=== PATIENT | female | born 1930 | race Caucasian/White ===

== ENCOUNTER 2016-12-07 19:07 | Emergency (ER) | payer MEDICARE, BC ==
[~2016-12-07] VITALS: Ht 154.9 cm; Wt 71.4 kg
[~2016-12-07 19:07] MED LIST: 00186-0370-20 IH; ACTONEL; ACTONEL PO; ATORVASTATIN PO; BACTRIM DS 8001 TAB PO; CEPHALEXIN500 M1 PO; DARVOCET-N-101 UDTAB PO; DIOVAN; DIOVAN80 M1 PO; GLUCOPHAGE500 MG/TAB PO; HCTZ; HCTZ 25MG25 MG PO; IMODIUM 2MG CAPS2 MG PO; INDOMETHACIN50 MG PO; IRON FERROUS S325 MG PO; LABETALOL HCL100 MG PO; LASIX10 MG/M1 PO; LIDODERM PATCH TP; LIPITOR 10MG10 MG PO; LUTEIN8MG PO; NEXIUM PO; NEXIUM40 MG PO; OMNICEF 300MG300 MG PO; PRIL40 PO; PRINIVIL10 MG PO; TRANDATE 200MG200 MG PO; TUMS500 MG PO; TYLENOL 325MG325 MG PO; VITAMIN D31000 IU PO; ZANTAC 150MG T150 MG PO
[2016-12-07 19:09] VITALS: TEMP 98.3
[2016-12-07] MEDS ORDERED: LIPITOR 10MG10 MG (19:31)
[2016-12-07 19:57] LABS: PH 6 (5-8); SQUAMOUS EPITHELIAL 20-50 /hpf; URINE APPEARANCE Cloudy; URINE BACTERIA Moderate /hpf; URINE BILIRUBIN Negative (NEGATIVE); URINE BLOOD Negative (NEGATIVE); URINE COLOR Yellow; URINE GLUCOSE Negative (NEGATIVE); URINE KETONE Negative (NEGATIVE); URINE RBC 0-2 /hpf
[2016-12-07] MEDS ORDERED: CEPHALEXIN500 M1 PO (20:14)
[2016-12-07] MEDS ORDERED: NORCO 325 MG-51 TAB PO (20:14)
[2016-12-07 20:41] VITALS: BP 150/81; PULSE 64
== END 2016-12-07 20:42 | disposition home or self-care (01) ==
LOC: COL.ER 19:07
PROVIDERS: Emergency Medicine
DX: M54.5 Low back pain (principal); R22.2 Localized swelling, mass and lump, trunk

== ENCOUNTER → 2016-12-15 | Outpatient (CLI) | payer MEDICARE, BC ==
[~2016-12-15] MED LIST changes: +LIPITOR 10MG10 MG; +NORCO 325 MG-51 TAB PO
== END ==
LOC: COL.RAD 10:17
DX: M48.06 Spinal stenosis, lumbar region (principal)
CPT/HCPCS: A9585

== ENCOUNTER → 2017-01-19 | Outpatient (CLI) | payer MEDICARE, BC | LOC: COL.RAD 10:46 | DX: M25.552 Pain in left hip (principal) | CPT/HCPCS: J3301; Q9967 ==

== ENCOUNTER → 2017-05-01 | Outpatient (CLI) | payer MEDICARE, BC | LOC: MHCPAIN 11:12 | DX: G89.29 Other chronic pain (principal); M47.817 Spondylosis without myelopathy or radiculopathy, lumbosacral region; M54.16 Radiculopathy, lumbar region; M53.3 Sacrococcygeal disorders, not elsewhere classified; M96.1 Postlaminectomy syndrome, not elsewhere classified | CPT/HCPCS: G0463 ==

== ENCOUNTER → 2017-05-07 | Outpatient (CLI) | payer MEDICARE, BC | LOC: MHCPAIN 10:44 | DX: M54.16 Radiculopathy, lumbar region (principal); M96.1 Postlaminectomy syndrome, not elsewhere classified | CPT/HCPCS: J1100; Q9967 ==

== ENCOUNTER → 2017-06-12 | Outpatient (CLI) | payer MEDICARE, BC ==
[~2017-06-12] MED LIST changes: +AMITRIPTYLINE H25 M1 PO; +ASPIRIN 32325 MG/TAB PO; +DITROPAN 5MG TAB5 MG PO; +DOXYCYCLINE 10100 MG PO; +FLOVENT 110MCG7.9 GM IH; +Florastor PO; +LIPITOR 40MG TA40 MG PO; +NORVASC 10MG10 MG PO; +PRINIVIL20 MG PO; +PROAIR HFA0.09 MG/AC IH; +PROBIOTIC ACID1 EAC3 PO; +PROLIA60 MG/ML SQ; +ULTRAM 50MG TAB50 MG PO; +ZOFRAN 4MG T4 MG/TAB PO
== END ==
LOC: MHCPAIN 10:57
DX: G89.29 Other chronic pain (principal); M47.27 Other spondylosis with radiculopathy, lumbosacral region; M53.3 Sacrococcygeal disorders, not elsewhere classified; M96.1 Postlaminectomy syndrome, not elsewhere classified
CPT/HCPCS: G0463

== ENCOUNTER → 2017-06-18 | Outpatient (CLI) | payer MEDICARE, BC ==
[~2017-06-18] MED LIST changes: -AMITRIPTYLINE H25 M1 PO; -ASPIRIN 32325 MG/TAB PO; -DITROPAN 5MG TAB5 MG PO; -DOXYCYCLINE 10100 MG PO; -FLOVENT 110MCG7.9 GM IH; -Florastor PO; -LIPITOR 40MG TA40 MG PO; -NORVASC 10MG10 MG PO; -PRINIVIL20 MG PO; -PROAIR HFA0.09 MG/AC IH; -PROBIOTIC ACID1 EAC3 PO; -PROLIA60 MG/ML SQ; -ULTRAM 50MG TAB50 MG PO; -ZOFRAN 4MG T4 MG/TAB PO
== END ==
LOC: MHCPAIN 09:37
DX: M47.817 Spondylosis without myelopathy or radiculopathy, lumbosacral region (principal); Z98.1 Arthrodesis status
CPT/HCPCS: J1040; Q9967

== ENCOUNTER → 2017-06-24 | Outpatient (CLI) | payer MEDICARE, BC | LOC: MHCPAIN 09:26 | DX: G89.29 Other chronic pain (principal); M47.27 Other spondylosis with radiculopathy, lumbosacral region; M53.3 Sacrococcygeal disorders, not elsewhere classified; M96.1 Postlaminectomy syndrome, not elsewhere classified | CPT/HCPCS: G0463 ==

== ENCOUNTER 2017-08-10 13:15 | Outpatient (RCR) | payer MEDICARE, BC | END 2017-10-08 | disposition still patient (30) | LOC: MKS.ESL.PT | DX: R26.89 Other abnormalities of gait and mobility (principal); R29.6 Repeated falls; Z96.89 Presence of other specified functional implants | CPT/HCPCS: G8981-GP; G8982-GP ==

== ENCOUNTER → 2017-09-07 | Outpatient (CLI) | payer MEDICARE, BC | LOC: MHCPAIN 12:29 | DX: G89.29 Other chronic pain (principal); M47.817 Spondylosis without myelopathy or radiculopathy, lumbosacral region; M53.3 Sacrococcygeal disorders, not elsewhere classified; M96.1 Postlaminectomy syndrome, not elsewhere classified | CPT/HCPCS: G0463 ==

== ENCOUNTER → 2017-09-24 | Outpatient (CLI) | payer MEDICARE, BC | LOC: MHCPAIN 08:42 | DX: M47.27 Other spondylosis with radiculopathy, lumbosacral region (principal); M96.1 Postlaminectomy syndrome, not elsewhere classified; M99.53 Intervertebral disc stenosis of neural canal of lumbar region | CPT/HCPCS: J1100; J2250; J3010; Q9967 ==

== ENCOUNTER → 2017-11-20 | Outpatient (CLI) | payer MEDICARE, BC | LOC: MHCPAIN 08:06 | DX: G89.29 Other chronic pain (principal); M47.27 Other spondylosis with radiculopathy, lumbosacral region; M53.3 Sacrococcygeal disorders, not elsewhere classified; M96.1 Postlaminectomy syndrome, not elsewhere classified | CPT/HCPCS: G0463 ==

== ENCOUNTER → 2017-11-20 | Outpatient (CLI) | payer MEDICARE, BC | LOC: COL.RAD 08:56 | DX: M54.9 Dorsalgia, unspecified (principal); Z98.1 Arthrodesis status; M43.16 Spondylolisthesis, lumbar region ==

== ENCOUNTER → 2017-12-10 | Outpatient (CLI) | payer MEDICARE, BC | LOC: MHCPAIN 10:41 | DX: M47.817 Spondylosis without myelopathy or radiculopathy, lumbosacral region (principal); M96.1 Postlaminectomy syndrome, not elsewhere classified; M53.3 Sacrococcygeal disorders, not elsewhere classified | CPT/HCPCS: G0260; J1040; Q9967 ==

== ENCOUNTER 2018-01-06 18:38 | Inpatient (IN) | payer MEDICARE, BC ==
[~2018-01-06] VITALS: Ht 154.9 cm; Wt 68.6 kg
[2018-01-06] MEDS ORDERED: AMITRIPTYLINE H25 M1 PO (19:16)
[2018-01-06 19:17] LABS: BASO % 0.2 % (0.0-2.0); EOS % 0.2 % (0-4.0); GRAN # 10.7 (1.4-6.5); GRAN % 82.2 % (42.2-75.2); HEMATOCRIT 41.2 % (37.0-47.0); HEMOGLOBIN 14.1 g/dl (12.5-16.0); LYMPH % 7.9 % (20.0-51.0); MEAN CELL VOLUME 91 fl (80.0-100.0); MEAN CORPUSCULAR HEMOGLOBIN 31 pg (27.0-31.0); MEAN CORPUSCULAR HGB CONC 34 g/dl (33.0-37.0); MONO # 1.2 (0.1-0.6); PLATELET COUNT 198 K/mm3 (130-400); RED BLOOD COUNT 4.53 M/mm3 (4.10-5.30); REDCELL DISTRIBUTION WIDTH-CV 12.9 % (11.5-14.5)
[2018-01-06] MEDS ORDERED: FLOVENT 110MCG7.9 GM IH (19:18)
[2018-01-06] MEDS ORDERED: PRINIVIL10 MG PO (19:19)
[2018-01-06] MEDS ORDERED: PRIL40 PO (19:20)
[2018-01-06 19:21] LABS: INR 1.1 (0.8-3.0); PROTHROMBIN TIME 12.5 SECONDS (9.7-12.8)
[2018-01-06] MEDS ORDERED: ZOFRAN 4MG T4 MG/TAB PO (19:21)
[2018-01-06] MEDS ORDERED: DITROPAN 5MG TAB5 MG PO (19:22)
[2018-01-06] MEDS ORDERED: PROAIR HFA0.09 MG/AC IH (19:24)
[2018-01-06 19:30] LABS: ALANINE AMINOTRANSFERASE 25 U/L (9-52); ALBUMIN 4.2 gm/dL (3.5-5.0); ALKALINE PHOSPHATASE 79 U/L (50-136); ANION GAP 17 mmol/L (7-16); AST,SGOT 22 U/L (15-37); BILIRUBIN,TOTAL 0.9 mg/dL (0.0-1.0); BLOOD UREA NITROGEN 13 mg/dL (7-17); CALCIUM 9.6 mg/dL (8.4-10.2); CARBON DIOXIDE 21 mmol/L (22-30); CHLORIDE 103 mmol/L (98-107); GLUCOSE 133 mg/dL (74-106); POTASSIUM 3.3 mmol/L (3.4-5.0); SODIUM 142 mmol/L (137-145); TOTAL PROTEIN 7.6 gm/dL (6.4-8.2)
[2018-01-06 19:43] LABS: COLLECTION METHOD CLEAN CATCH
[2018-01-06 19:44] LABS: TROPONIN-I < 0.012 ng/mL (0.000-0.034)
[2018-01-06 19:59] LABS: MUCOUS Present /lpf; PH 5 (5-8); SQUAMOUS EPITHELIAL 0-2 /hpf; URINE APPEARANCE Hazy; URINE BACTERIA None Seen /hpf; URINE BILIRUBIN Negative (NEGATIVE); URINE BLOOD 2+ (NEGATIVE); URINE COLOR Yellow; URINE GLUCOSE Negative (NEGATIVE); URINE KETONE Trace (NEGATIVE); URINE LEUKOCYTE ESTERASE Negative (NEGATIVE); URINE NITRATE Positive (NEGATIVE); URINE PROTEIN(semi-quant) Negative (NEGATIVE); URINE UROBILINOGEN Negative (NEGATIVE)
[2018-01-06 21:14] VITALS: BP 155/86; PULSE 114; TEMP 98.8
[2018-01-06] MEDS ORDERED: PROLIA60 MG/ML SQ (21:34)
[2018-01-06] MEDS ORDERED: ULTRAM 50MG TAB50 MG PO (21:37)
[2018-01-07] VITALS (8 sets, daily range): BP systolic 108–167; BP diastolic 53–106; PULSE 77–108; TEMP 97.5–99.5
[2018-01-07 07:00] LABS: BASO # 0.1 (0.0-0.2); BASO % 0.3 % (0.0-2.0); EOS # 0.1 (0.0-0.7); EOS % 0.4 % (0-4.0); GRAN # 13.2 (1.4-6.5); GRAN % 75.7 % (42.2-75.2); HEMOGLOBIN 12.2 g/dl (12.5-16.0); LYMPH # 2.6 (1.2-3.4); LYMPH % 14.8 % (20.0-51.0); MEAN CELL VOLUME 92 fl (80.0-100.0); MEAN CORPUSCULAR HEMOGLOBIN 31 pg (27.0-31.0); MEAN CORPUSCULAR HGB CONC 34 g/dl (33.0-37.0); MEAN PLATELET VOLUME 9.5 fl (7.4-10.4); MONO # 1.4 (0.1-0.6); MONO % 8.2 % (1.7-9.3); PLATELET COUNT 194 K/mm3 (130-400); RED BLOOD COUNT 3.97 M/mm3 (4.10-5.30); REDCELL DISTRIBUTION WIDTH-CV 13.1 % (11.5-14.5)
[2018-01-07 07:01] LABS: HEMATOCRIT 36.4 % (37.0-47.0)
[2018-01-07 07:08] LABS: ALBUMIN 3.2 gm/dL (3.5-5.0); BILIRUBIN,TOTAL 0.7 mg/dL (0.0-1.0); CALCIUM 8.4 mg/dL (8.4-10.2); CREATININE, serum 0.98 mg/dL (0.52-1.25); POTASSIUM 3.9 mmol/L (3.4-5.0)
[2018-01-08 04:11] VITALS: BP 163/65; PULSE 86; TEMP 98.3
[2018-01-08 07:41] LABS: BASO % 0.3 % (0.0-2.0); EOS # 0.2 (0.0-0.7); EOS % 1.2 % (0-4.0); GRAN % 73.9 % (42.2-75.2); LYMPH # 2.2 (1.2-3.4); LYMPH % 16.1 % (20.0-51.0); MEAN CELL VOLUME 92 fl (80.0-100.0); MEAN CORPUSCULAR HGB CONC 33 g/dl (33.0-37.0); MEAN PLATELET VOLUME 9.6 fl (7.4-10.4); MONO # 1.1 (0.1-0.6); MONO % 7.8 % (1.7-9.3); PLATELET COUNT 186 K/mm3 (130-400); RED BLOOD COUNT 3.78 M/mm3 (4.10-5.30); REDCELL DISTRIBUTION WIDTH-CV 13.2 % (11.5-14.5)
[2018-01-08 07:45] LABS: CALCIUM 8.2 mg/dL (8.4-10.2); CREATININE, serum 0.88 mg/dL (0.52-1.25); POTASSIUM 3.3 mmol/L (3.4-5.0)
[2018-01-08 07:47] LABS: HEMATOCRIT 34.7 % (37.0-47.0); HEMOGLOBIN 11.6 g/dl (12.5-16.0); MEAN CORPUSCULAR HEMOGLOBIN 31 pg (27.0-31.0)
[2018-01-08 08:18] VITALS: BP 152/62; PULSE 90; TEMP 98.8
[2018-01-08 11:02] VITALS: BP 133/48; PULSE 72; TEMP 98.1
[2018-01-08 15:42] VITALS: BP 144/64; PULSE 81; TEMP 97.7
[2018-01-08 19:32] VITALS: BP 135/75; PULSE 84; TEMP 98.2
[2018-01-09] VITALS (7 sets, daily range): BP systolic 142–171; BP diastolic 58–106; PULSE 70–82; TEMP 97.3–99.4
[2018-01-09 07:15] LABS: BASO % 0.2 % (0.0-2.0); EOS # 0.3 (0.0-0.7); LYMPH # 2.7 (1.2-3.4); LYMPH % 24.3 % (20.0-51.0); MEAN CELL VOLUME 93 fl (80.0-100.0); MEAN CORPUSCULAR HGB CONC 33 g/dl (33.0-37.0); MEAN PLATELET VOLUME 9.6 fl (7.4-10.4); MONO # 0.9 (0.1-0.6); PLATELET COUNT 211 K/mm3 (130-400); RED BLOOD COUNT 3.65 M/mm3 (4.10-5.30); REDCELL DISTRIBUTION WIDTH-CV 13.2 % (11.5-14.5)
[2018-01-09 07:16] LABS: HEMATOCRIT 34.1 % (37.0-47.0); HEMOGLOBIN 11.4 g/dl (12.5-16.0); MEAN CORPUSCULAR HEMOGLOBIN 31 pg (27.0-31.0)
[2018-01-09 07:55] LABS: CALCIUM 8.3 mg/dL (8.4-10.2); CREATININE, serum 0.94 mg/dL (0.52-1.25); POTASSIUM 3.9 mmol/L (3.4-5.0)
[2018-01-10 03:34] VITALS: BP 156/60; PULSE 75; TEMP 98.1
[2018-01-10 06:42] LABS: BASO % 0.3 % (0.0-2.0); EOS # 0.3 (0.0-0.7); EOS % 3.9 % (0-4.0); GRAN % 56.3 % (42.2-75.2); LYMPH # 2.7 (1.2-3.4); LYMPH % 30.2 % (20.0-51.0); MEAN CELL VOLUME 94 fl (80.0-100.0); MEAN CORPUSCULAR HGB CONC 33 g/dl (33.0-37.0); MEAN PLATELET VOLUME 9.6 fl (7.4-10.4); MONO # 0.8 (0.1-0.6); MONO % 8.7 % (1.7-9.3); PLATELET COUNT 226 K/mm3 (130-400); RED BLOOD COUNT 3.63 M/mm3 (4.10-5.30)
[2018-01-10 07:00] LABS: CREATININE, serum 0.93 mg/dL (0.52-1.25); HEMATOCRIT 34.1 % (37.0-47.0); HEMOGLOBIN 11.2 g/dl (12.5-16.0); MAGNESIUM 1.6 mg/dL (1.6-2.3); MEAN CORPUSCULAR HEMOGLOBIN 31 pg (27.0-31.0); PHOSPHOROUS 3.8 mg/dL (2.5-4.5); POTASSIUM 3.4 mmol/L (3.4-5.0)
[2018-01-10 07:47] VITALS: BP 168/73; PULSE 67; TEMP 98.1
[2018-01-10] MEDS ORDERED: PRINIVIL20 MG PO (09:18)
[2018-01-10] MEDS ORDERED: Florastor PO (09:19)
[2018-01-10] MEDS ORDERED: PROBIOTIC ACID1 EAC3 PO (09:19)
[2018-01-10] MEDS ORDERED: OMNICEF 300MG300 MG PO (09:20)
[2018-01-10 09:23] VITALS: BP 156/68; PULSE 97
[2018-01-10 12:31] VITALS: BP 150/64; PULSE 70; TEMP 97.2
== END 2018-01-10 15:21 | disposition home health service (06) | DRG 871 ==
LOC: COL.ER 18:38 → MEDICAL 20:11
PROVIDERS: Emergency Medicine; Internal Medicine; Nurse Practitioner; Physician Assistant
DX: A41.9 Sepsis, unspecified organism (principal); J18.9 Pneumonia, unspecified organism; R65.21 Severe sepsis with septic shock; E86.0 Dehydration; E87.6 Hypokalemia; I10 Essential (primary) hypertension; G89.29 Other chronic pain; M54.5 Low back pain; E83.42 Hypomagnesemia
CPT/HCPCS: 99223-AI; 99231-AI; 99232-AI; 99238; J0696; J1650; J2543; J3475; J7030; Q9967

== ENCOUNTER → 2018-01-18 | Outpatient (CLI) | payer MEDICARE, BC ==
[~2018-01-18] MED LIST changes: +AMITRIPTYLINE H25 M1 PO; +DITROPAN 5MG TAB5 MG PO; +FLOVENT 110MCG7.9 GM IH; +Florastor PO; +PRINIVIL20 MG PO; +PROAIR HFA0.09 MG/AC IH; +PROBIOTIC ACID1 EAC3 PO; +PROLIA60 MG/ML SQ; +ULTRAM 50MG TAB50 MG PO; +ZOFRAN 4MG T4 MG/TAB PO
== END ==
LOC: MHCPAIN 11:33
DX: G89.29 Other chronic pain (principal); M47.27 Other spondylosis with radiculopathy, lumbosacral region; M47.814 Spondylosis without myelopathy or radiculopathy, thoracic region; M53.3 Sacrococcygeal disorders, not elsewhere classified; M96.1 Postlaminectomy syndrome, not elsewhere classified
CPT/HCPCS: G0463

== ENCOUNTER → 2018-04-05 | Outpatient (CLI) | payer MEDICARE, BC | LOC: MHCPAIN 11:09 | DX: G89.29 Other chronic pain (principal); M47.817 Spondylosis without myelopathy or radiculopathy, lumbosacral region; M54.16 Radiculopathy, lumbar region; M53.3 Sacrococcygeal disorders, not elsewhere classified; M96.1 Postlaminectomy syndrome, not elsewhere classified | CPT/HCPCS: G0463 ==

== ENCOUNTER → 2018-04-22 | Outpatient (CLI) | payer MEDICARE, BC | LOC: MHCPAIN 13:07 | DX: M47.817 Spondylosis without myelopathy or radiculopathy, lumbosacral region (principal); M53.3 Sacrococcygeal disorders, not elsewhere classified | CPT/HCPCS: G0260; J1040; Q9967 ==

== ENCOUNTER → 2018-06-01 | Outpatient (CLI) | payer MEDICARE, BC | LOC: MHCPAIN 11:43 | DX: M47.817 Spondylosis without myelopathy or radiculopathy, lumbosacral region (principal); M54.16 Radiculopathy, lumbar region; M53.3 Sacrococcygeal disorders, not elsewhere classified; M96.1 Postlaminectomy syndrome, not elsewhere classified | CPT/HCPCS: G0463 ==

== ENCOUNTER → 2018-07-04 | Emergency (ER) | payer MEDICARE, BC ==
[~2018-07-04] VITALS: Ht 154.9 cm; Wt 65.5 kg
[~2018-07-04] MED LIST changes: +DOXYCYCLINE 10100 MG PO
[2018-07-04 17:14] VITALS: BP 140/68; PULSE 78; TEMP 97.6
== END ==
LOC: COL.ER 17:07
DX: L02.31 Cutaneous abscess of buttock (principal); Z23 Encounter for immunization; Z79.891 Long term (current) use of opiate analgesic; Z79.899 Other long term (current) drug therapy

== ENCOUNTER 2018-07-06 18:53 | Emergency (ER) | payer MEDICARE, BC ==
[2018-07-06 18:55] VITALS: BP 184/89; TEMP 98.1
[2018-07-06 19:20] VITALS: PULSE 65
== END 2018-07-06 19:22 | disposition home or self-care (01) ==
LOC: COL.ER 18:53
DX: L02.31 Cutaneous abscess of buttock (principal); I10 Essential (primary) hypertension; E78.5 Hyperlipidemia, unspecified; K21.9 Gastro-esophageal reflux disease without esophagitis; Z90.89 Acquired absence of other organs

== ENCOUNTER → 2018-08-24 | Outpatient (CLI) | payer MEDICARE, BC | LOC: MHCPAIN 13:45 | DX: G89.29 Other chronic pain (principal); M47.817 Spondylosis without myelopathy or radiculopathy, lumbosacral region; M54.16 Radiculopathy, lumbar region; M53.3 Sacrococcygeal disorders, not elsewhere classified; M96.1 Postlaminectomy syndrome, not elsewhere classified | CPT/HCPCS: G0463 ==

== ENCOUNTER → 2018-09-06 | Outpatient (CLI) | payer MEDICARE, BC | LOC: MHCPAIN 11:18 | DX: M47.817 Spondylosis without myelopathy or radiculopathy, lumbosacral region (principal); M54.16 Radiculopathy, lumbar region | CPT/HCPCS: J1100; Q9967 ==

== ENCOUNTER → 2018-09-21 | Outpatient (CLI) | payer MEDICARE, BC | LOC: MHCPAIN 13:50 | DX: G89.29 Other chronic pain (principal); M47.817 Spondylosis without myelopathy or radiculopathy, lumbosacral region; M54.16 Radiculopathy, lumbar region; M53.3 Sacrococcygeal disorders, not elsewhere classified; M96.1 Postlaminectomy syndrome, not elsewhere classified | CPT/HCPCS: G0463 ==

== ENCOUNTER 2019-11-03 08:08 | Inpatient (IN) | payer MEDICARE, BC ==
[~2019-11-03] VITALS: Ht 154.9 cm; Wt 79.3 kg
[~2019-11-03 08:08] MED LIST changes: +ASPIRIN 32325 MG/TAB PO; +LIPITOR 40MG TA40 MG PO; +NORVASC 10MG10 MG PO
[2019-11-07 09:05] LABS: BASO % 0.3 % (0.0-2.0); EOS # 0.4 (0.0-0.7); EOS % 3.8 % (0-4.0); GRAN % 63.7 % (42.2-75.2); HEMATOCRIT 39.1 % (37.0-47.0); HEMOGLOBIN 12.5 g/dl (12.5-16.0); LYMPH # 2.3 (1.2-3.4); LYMPH % 21.1 % (20.0-51.0); MEAN CELL VOLUME 94 fl (80.0-100.0); MEAN CORPUSCULAR HEMOGLOBIN 30 pg (27.0-31.0); MEAN CORPUSCULAR HGB CONC 32 g/dl (33.0-37.0); MEAN PLATELET VOLUME 9.1 fl (7.4-10.4); MONO # 1.2 (0.1-0.6); MONO % 10.6 % (1.7-9.3); PLATELET COUNT 242 K/mm3 (130-400); RED BLOOD COUNT 4.15 M/mm3 (4.10-5.30); REDCELL DISTRIBUTION WIDTH-CV 13.4 % (11.5-14.5)
[2019-11-07 09:18] LABS: INR 1.1 (0.8-3.0); PROTHROMBIN TIME 13.1 SECONDS (9.7-12.8)
[2019-11-07 09:20] LABS: ALBUMIN 4.1 gm/dL (3.5-5.0); BILIRUBIN,TOTAL 0.6 mg/dL (0.0-1.0); CALCIUM 9.5 mg/dL (8.4-10.2); CREATININE, serum 1.23 (0.52-1.25); MAGNESIUM 1.5 mg/dL (1.6-2.3); POTASSIUM 3.9 mmol/L (3.4-5.0); TOTAL PROTEIN 7.7 gm/dL (6.4-8.2)
--- NOTE | 2019-11-07 09:54 | NUR ---
CALEB met with the patient and her son, Augie Campbell (ph#[phone]), to discuss discharge plan. The patient resides at [facility] for long-term care. She utilizes a walker and wheelchair. The patient's PCP is Dr. Bonifacio Fields. The patient does not have advanced directives in EMR, but her and her son report that she does have them completed. Augie states that she is the patient's DPOA-HC. The patient reports that the plan is to return back to [facility] upon discharge. CALEB presented and explained the Patient Choice Form to the patient and her son. The patient verbalized understanding, signed, and she was provided a copy. CALEB contacted and updated Itzel at [facility]. SW to fax updates to [facility] and will continue to follow.
[2019-11-07] MEDS ORDERED: TYLENOL 325MG325 MG PO (10:22)
[2019-11-07] MEDS ORDERED: AMITRIPTYLINE H25 M1 PO (10:27)
[2019-11-07] MEDS ORDERED: NORVASC 5MG5 MG/TAB PO (10:29)
[2019-11-07] MEDS ORDERED: PULMICORT0.5 MG/2 M IH (10:33)
[2019-11-07] MEDS ORDERED: CLARITIN 1010 MG/TAB PO (10:35)
[2019-11-07] MEDS ORDERED: ELIQUIS 2.5 PO (10:36)
[2019-11-07] MEDS ORDERED: IPRATROPIUM BROM3 M1 IH (11:25)
[2019-11-07] MEDS ORDERED: COZAAR 25MG25 MG/TAB PO (11:26)
[2019-11-07] MEDS ORDERED: PRIL40 PO (11:29)
[2019-11-07] MEDS ORDERED: PRESERVISION1 SGL PO (11:33)
[2019-11-07] MEDS ORDERED: SALINE 45 ML45 ML NS (11:34)
[2019-11-07] MEDS ORDERED: ROBITUSSIN100 MG/5 M PO (11:38)
[2019-11-07 12:00] VITALS: BP 129/72; PULSE 80; TEMP 98.2
--- NOTE | 2019-11-07 12:20 | NUR ---
PATIENT EDUCATED ON HOW TO USE HER CALL LIGHT WHEN SHE NEEDS TO GET UP FOR ANY REASON. PATIENT STATED THAT SHE WOULD USE THE CALL LIGHT IF SHE NEEDED TO GET UP AT ANY TIME.
[2019-11-07 16:04] VITALS: BP 146/79; PULSE 64; TEMP 97.6
--- NOTE | 2019-11-07 18:20 | NUR ---
PATIENT IS RESTING IN BED, HEAD ELEVATED AWAITING SUPPER. DENIES PAIN OR ANY FURTHER NEEDS AT THIS TIME. CALL LIGHT AND PERSONAL ITEMS ARE WITHIN REACH.
--- NOTE | 2019-11-07 19:10 | NUR ---
Received report from Bertha day shift nurse. Patient is currently awake, sitting on bed. Relatives on bedside. Denies any pain. Assessment completed. Will continue to monitor.
[2019-11-07 22:10] VITALS: BP 124/70; PULSE 61; TEMP 97.5
[2019-11-08 00:45] VITALS: BP 129/63; PULSE 79; TEMP 97.8
[2019-11-08 04:13] VITALS: BP 132/87; PULSE 84; TEMP 97.7
[2019-11-08 07:22] LABS: BASO # 0.1 (0.0-0.2); BASO % 0.4 % (0.0-2.0); EOS # 0.4 (0.0-0.7); EOS % 3.7 % (0-4.0); GRAN # 6.6 (1.4-6.5); GRAN % 57.4 % (42.2-75.2); HEMATOCRIT 40.5 % (37.0-47.0); LYMPH # 3.1 (1.2-3.4); LYMPH % 26.9 % (20.0-51.0); MEAN CELL VOLUME 93 fl (80.0-100.0); MEAN CORPUSCULAR HEMOGLOBIN 30 pg (27.0-31.0); MEAN CORPUSCULAR HGB CONC 32 g/dl (33.0-37.0); MEAN PLATELET VOLUME 9.4 fl (7.4-10.4); MONO # 1.3 (0.1-0.6); MONO % 11.1 % (1.7-9.3); PLATELET COUNT 276 K/mm3 (130-400); RED BLOOD COUNT 4.36 M/mm3 (4.10-5.30); REDCELL DISTRIBUTION WIDTH-CV 13.1 % (11.5-14.5)
[2019-11-08 07:24] LABS: INR 1.1 (0.8-3.0); PROTHROMBIN TIME 13.1 SECONDS (9.7-12.8)
[2019-11-08 07:34] LABS: CREATININE, serum 1.14 (0.52-1.25); MAGNESIUM 2.1 mg/dL (1.6-2.3); POTASSIUM 3.9 mmol/L (3.4-5.0)
[2019-11-08 07:57] VITALS: BP 131/82; PULSE 66; TEMP 97.4
--- NOTE | 2019-11-08 12:05 | NUR ---
First visit from the warehouse guard. prayed with patient. No other needs right now.
[2019-11-08 12:55] VITALS: BP 102/61; PULSE 63; TEMP 98.4
--- NOTE | 2019-11-08 14:59 | NUR ---
CALEB faxed updates to Itzel at [facility]. CALEB to continue to follow.
[2019-11-08 16:15] VITALS: BP 114/82; PULSE 81; TEMP 97.5
--- NOTE | 2019-11-08 19:03 | NUR ---
PATIENT RESTING IN BED, SPOKE WITH DAUGHTER ABOUT CARDIOVERSION TOMORROW, IS UNABLE TO PROVIDE TIME FOR PROCEDURE AND SHE STATES SHE WOULD LIKE TO BE NOTIFIED WITH A TIME IF POSSIBLE. PATIENT VERBALIZES NO NEEDS. CALL LIGHT AND PERSONAL ITEMS ARE WITHIN REACH.
--- NOTE | 2019-11-08 20:30 | NUR ---
Shift assessment complete. Pt resting in bedside recliner, awake, a&o, cooperative c cares. Pt c/o chronic back pain rated 5/10; scheduled APAP admin et pt denies need for further intervention. Denies any other c/o. INT patent. Tele in place. Pt denies further needs. Call light in reach, will continue to monitor.
[2019-11-08 22:09] VITALS: BP 120/55; PULSE 98; TEMP 98.8
[2019-11-09] VITALS (8 sets, daily range): BP systolic 117–147; BP diastolic 64–85; PULSE 63–118; TEMP 97.6–98
--- NOTE | 2019-11-09 00:30 | NUR ---
Pt min x1 assist to BR. C/o increased chronic back pain r/t "that bed is way too soft". Pt request "the pain medicine c tylenol in it". [place] 1tab admin at this time. Pt denies any other c/o. Assisted back to bed. Call light in reach, will monitor.
[2019-11-09 07:40] LABS: BASO # 0.1 (0.0-0.2); BASO % 0.5 % (0.0-2.0); EOS # 0.4 (0.0-0.7); EOS % 3.4 % (0-4.0); GRAN # 7.6 (1.4-6.5); HEMATOCRIT 41.8 % (37.0-47.0); HEMOGLOBIN 13.4 g/dl (12.5-16.0); LYMPH # 3.3 (1.2-3.4); LYMPH % 25.3 % (20.0-51.0); MEAN CELL VOLUME 93 fl (80.0-100.0); MEAN CORPUSCULAR HEMOGLOBIN 30 pg (27.0-31.0); MEAN CORPUSCULAR HGB CONC 32 g/dl (33.0-37.0); MEAN PLATELET VOLUME 9.2 fl (7.4-10.4); MONO # 1.4 (0.1-0.6); MONO % 11.2 % (1.7-9.3); PLATELET COUNT 285 K/mm3 (130-400); RED BLOOD COUNT 4.51 M/mm3 (4.10-5.30); REDCELL DISTRIBUTION WIDTH-CV 13.2 % (11.5-14.5)
[2019-11-09 07:49] LABS: INR 1.2 (0.8-3.0); PROTHROMBIN TIME 14.1 SECONDS (9.7-12.8)
[2019-11-09 07:53] LABS: CALCIUM 9.3 mg/dL (8.4-10.2); CREATININE, serum 1.21 (0.52-1.25); MAGNESIUM 1.8 mg/dL (1.6-2.3); POTASSIUM 3.9 mmol/L (3.4-5.0)
--- NOTE | 2019-11-09 08:30 | NUR ---
Assessment completed, alert/oriented, vital signs stable, denies pain, A.fib on tele/ rate 80's, denies any palpatations or discomfort, lungs CTA/ no resp.difficulty noted, scheduled for CV with anasthesia, has been NPO/ consent signed, Daughter present, plans for discharge home after Cardioversion
[2019-11-09] MEDS ORDERED: BETAPACE 80MG80 MG PO (10:46)
--- NOTE | 2019-11-09 11:07 | NUR ---
The patient is to discharge today, 11/09, back to [facility] for long-term care. Transportation to be by private vehicle, via the patient's family. SW notified and faxed discharge orders to [facility]. No additional needs at this time.
--- NOTE | 2019-11-09 14:49 | NUR ---
discharge instructions reviewed with the patient and her son, instructed to follow up with Cardiology as we have scheduled, instructed to take meds as prescribe/ script for Sotalol sent to [facility] pharmacy for her, IV and Tele removed, leaving with her son, IMAGE ASSEMBLER escorted patient out by wheechair
== END 2019-11-09 14:50 | DRG 310 ==
LOC: MEDICAL 11-07 07:56
PROVIDERS: ADMIT Internal Medicine Adult Congenital Heart Disease
PROC: 5A2204Z Restoration of Cardiac Rhythm, Single (ICD-10-PCS; principal; 2019-11-09)
DX: I48.0 Paroxysmal atrial fibrillation (principal); I10 Essential (primary) hypertension; J45.909 Unspecified asthma, uncomplicated; K58.9 Irritable bowel syndrome, unspecified; Z87.01 Personal history of pneumonia (recurrent); Z86.73 Personal history of transient ischemic attack (TIA), and cerebral infarction without residual deficits; K21.9 Gastro-esophageal reflux disease without esophagitis; E78.2 Mixed hyperlipidemia; M81.0 Age-related osteoporosis without current pathological fracture; Z90.49 Acquired absence of other specified parts of digestive tract; Z88.5 Allergy status to narcotic agent; Z88.8 Allergy status to other drugs, medicaments and biological substances
CPT/HCPCS: J1940; J2704; J3475

== ENCOUNTER → 2020-07-24 | Outpatient (CLI) | payer MEDICARE, BC ==
[~2020-07-24] MED LIST changes: +BETAPACE 80MG80 MG PO; +CLARITIN 1010 MG/TAB PO; +COZAAR 25MG25 MG/TAB PO; +ELIQUIS 2.5 PO; +IPRATROPIUM BROM3 M1 IH; +NORVASC 5MG5 MG/TAB PO; +PRESERVISION1 SGL PO; +PULMICORT0.5 MG/2 M IH; +ROBITUSSIN100 MG/5 M PO; +SALINE 45 ML45 ML NS
== END ==
LOC: MHCPAIN 10:23
DX: M47.817 Spondylosis without myelopathy or radiculopathy, lumbosacral region (principal); M54.5 Low back pain; M53.3 Sacrococcygeal disorders, not elsewhere classified; G89.29 Other chronic pain; M54.16 Radiculopathy, lumbar region; M96.1 Postlaminectomy syndrome, not elsewhere classified
CPT/HCPCS: G0463

== ENCOUNTER → 2020-07-26 | Outpatient (CLI) | payer MEDICARE, BC | LOC: MHCPAIN 10:05 | DX: M25.552 Pain in left hip (principal); M16.12 Unilateral primary osteoarthritis, left hip | CPT/HCPCS: J1040; Q9967 ==

== ENCOUNTER → 2020-12-21 | Outpatient (CLI) | payer MEDICARE, BC | LOC: MC.RAD 11:00 | DX: Z12.31 Encounter for screening mammogram for malignant neoplasm of breast (principal) ==